=== PATIENT | female | born 1960 | race Hispanic/Latino ===

== ENCOUNTER 2021-03-29 19:20 | Emergency (ER) | payer OTHER ==
[~2021-03-29] VITALS: Ht 160 cm; Wt 70.3 kg
[2021-03-29 19:22] VITALS: BP 127/74
[2021-03-29 20:52] VITALS: BP 125/77
[2021-03-29] MEDS ORDERED: KETOROLAC 60 MG VIAL (30MG/ML) IM ONE (21:00)
[2021-03-29 21:01] LABS: APPEARANCE,URINE Clear (CLEAR); BILIRUBIN,URINE Negative (NEGATIVE); COLOR,URINE Yellow (YELLOW); GLUCOSE, URINE (UA) Negative (NEGATIVE); KETONES,URINE Trace mg/dL (NEGATIVE); LEUKOCYTE ESTERASE ,URINE Moderate (NEGATIVE); NITRATE,URINE Negative (NEGATIVE); OCCULT BLOOD,URINE Negative (NEGATIVE); PH,URINE 5.5 (5.0-8.0); PROTEIN,URINE Negative (NEGATIVE); UROBILINOGEN,URINE 0.2 mg/dL (0.2-1.0)
[2021-03-29 21:02] LABS: HCG,QUAL RESULT NEGATIVE (NEGATIVE)
[2021-03-29 21:10] LABS: BACTERIA,URINE Few /HPF (None Seen); MUCUS,URINE Rare LPF (None Seen); SQUAMOUS EPITHELIAL CELL,UR Few /HPF (0-2)
[2021-03-29] MEDS ORDERED: CEFTRIAXONE 1G VIAL IVP ONE (21:30)
[2021-03-29 22:35] LABS: BASOPHILS % (AUTO) 0.4 % (0.0-5.0); EOSINOPHILS % (AUTO) 1.9 % (0.0-8.0); HEMATOCRIT 39.2 % (36-48); LYMPHOCYTES % (AUTO) 29.1 % (21.0-51.0); MEAN CORPUSCULAR HEMOGLOBIN 31.2 pg (27.0-33.0); MEAN CORPUSCULAR HGB CONC 33.7 g/dL (32.0-36.0); MEAN CORPUSCULAR VOLUME 92.7 fL (79-99); MONOCYTES % (AUTO) 7.6 % (3.0-13.0); NEUTROPHILS % (AUTO) 60.6 % (40.0-77.0); PLATELET COUNT (AUTO) 208 K/uL (130-400); RED BLOOD CELL COUNT(AUTO) 4.23 MIL/uL (4.00-5.50); RED CELL DISTRIBUTION WIDTH 12.6 % (11.0-15.5); WHITE BLOOD COUNT (AUTO) 7.5 K/uL (4.8-10.8)
[2021-03-29 22:45] LABS: CREATININE 0.7 mg/dL (0.5-1.5); POTASSIUM 3.3 mmol/L (3.5-5.1)
[2021-03-29] MEDS ORDERED: CEPH500B PO (22:49)
[2021-03-29 22:50] LABS: ALBUMIN 3.8 g/dL (3.5-5.0); BILIRUBIN,TOTAL 0.4 mg/dL (0.2-1.0); TOTAL PROTEIN, SERUM 7.4 g/dL (6.0-8.3)
[2021-03-29 22:53] VITALS: BP 122/81
== END 2021-03-29 22:54 | disposition home or self-care (01) ==
LOC: EDH 19:20
DX: N39.0 Urinary tract infection, site not specified (principal); M54.5 Low back pain; N93.9 Abnormal uterine and vaginal bleeding, unspecified; Z79.1 Long term (current) use of non-steroidal anti-inflammatories (NSAID); Z88.5 Allergy status to narcotic agent; W18.39XA Other fall on same level, initial encounter; Y93.89 Activity, other specified; Y92.89 Other specified places as the place of occurrence of the external cause; Y99.8 Other external cause status
CPT/HCPCS: 36415; 80053; 81001; 81025; 85025; 87088; 96372; 96374; 99284; J0696; J1885

== ENCOUNTER 2025-07-11 19:26 | Emergency (ER) | payer OTHER ==
[~2025-07-11] VITALS: Ht 160 cm; Wt 71.2 kg
--- NOTE | 2025-07-11 19:44 | NUR ---
UA CUP PROVIDED
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
[2025-07-12] MEDS: AMOX/CLAV 875/125MG TAB PO SCH (00:06)
[2025-07-12] MEDS: HYDROcodone/APAP 5/325 1 TAB TABLET PO ONE (00:06)
[2025-07-12 00:10] VITALS: BP 135/74; PULSE 72; RESP 18; TEMP 97.9; O2SAT 99
--- NOTE | 2025-07-12 00:27 | NUR ---
WOUND CARD DONE ORDERED
== END 2025-07-12 00:28 | disposition home or self-care (01) ==
LOC: EDH 19:26
DX: S61.252A Open bite of right middle finger without damage to nail, initial encounter (principal); S20.219A Contusion of unspecified front wall of thorax, initial encounter; Z88.5 Allergy status to narcotic agent; Y04.1XXA Assault by human bite, initial encounter; Y93.89 Activity, other specified; Y92.89 Other specified places as the place of occurrence of the external cause; Y99.0 Civilian activity done for income or pay
CPT/HCPCS: 73140; 90471; 90714; 99283